=== PATIENT | female | born 1980 ===

== ENCOUNTER 2016-10-26 08:12 | Inpatient (IN) ==
--- NOTE | 2016-10-26 08:50 | Ultrasound Report ---
History: Maternal IDDM Date: 10/26/2016 Study: ultrasound biophysical profile Comparison exam: October 15, 2016 Real-time ultrasound images are captured and archived. There is a single intrauterine fetus in vertex presentation with a heart rate of 163 bpm. The placenta is posterior and fundal without previa. The DALE is lower normal at 5.1 cm. breathing movement, gross body movement, tone, and qualitative amniotic fluid volume are normal. Impression: Low risk for chronic asphyxia. The biophysical profile score is a normal 8 out of 8. The amniotic fluid index is borderline low at 5.1 cm, as compared to 9.3 cm on the comparison exam PROCEDURE INTERPRETED AT [facility] DEPARTMENT OF RADIOLOGY Final Report Signed by: Dr. Sofie Cast
[2016-10-26] MEDS ORDERED: BUTORPHANOL 2 MG/ML VIAL IV PRN (10:57)
[2016-10-26] MEDS ORDERED: MEPERIDINE 50 MG/1 ML VIAL IV PRN (10:57)
[2016-10-26] MEDS ORDERED: ONDANSETRON 4 MG/2 ML VIAL IV PRN ×2 (10:57→19:37)
[2016-10-26] MEDS ORDERED: LACTATED RINGERS 1,000 ML IV SCH (11:00)
[2016-10-26] MEDS ORDERED: OXYTOCIN/LR 20 UNIT/1,000 ML BAG IV SCH (11:00)
[2016-10-26 11:26] LABS: Basophils % 0.2 % (0.0-0.8); Eosinophils # 0.1 10*3/uL (0.0-0.87); Eosinophils % 0.8 % (0.00-10.9); Hematocrit 37.5 VOL% (35.7-47.0); Hemoglobin 13.4 GM/DL (12.0-16.0); Immature Granulocytes % 1.9 %; Immature Granulocytes Absolute 0.18 #; Lymphocytes # 2.5 10*3/uL (1.4-4.0); Lymphocytes % 27.2 % (21.3-54.2); Mean Corpuscular HGB Conc 35.7 GM/DL (32-36); Mean Corpuscular Hemoglobin 32 PG (27-34); Mean Corpuscular Volume 88.9 FL (87-102); Mean Platelet Volume 9.5 FL (9.6-12.0); Monocytes # 0.5 10*3/uL (0.11-0.8); Monocytes % 5.7 % (1.7-12.7); NRBC # 0.07 10*3/uL; Neutrophils # 5.9 10*3/uL (1.4-7.4); Neutrophils % 64.2 % (38.7-73.9); Platelet Count 192 T/CUMM (130-400); Red Blood Count 4.22 MC/CUMM (3.8-5.5); White Blood Count 9.3 T/CUMM (4-12)
[2016-10-26] MEDS ORDERED: CITRIC ACID/SODIUM CITRATE 30 ML UDCUP PO ONE (11:42)
[2016-10-26] MEDS ORDERED: hydrOXYzine HCL 25 MG/1 ML VIAL IM PRN (11:42)
[2016-10-26] MEDS ORDERED: LACTATED RINGERS 1,000 ML IV PRN (11:42)
[2016-10-26] MEDS ORDERED: diphenhydrAMINE 50 MG/1 ML VIAL IV PRN ×2 (11:42)
[2016-10-26] MEDS ORDERED: FAMOTIDINE 20 MG/2 ML VIAL IV ONE (11:42)
[2016-10-26] MEDS ORDERED: ePHEDrine 50 MG/ML AMP IV PRN (11:42)
[2016-10-26] MEDS ORDERED: fentaNYL 2 MCG/ROPIV 0.2% EPID 150 ML EPIDURAL SCH (11:42)
[2016-10-26] MEDS ORDERED: PROMETHAZINE 25 MG/1 ML VIAL IM ONE (11:42)
[2016-10-26] MEDS ORDERED: LACTATED RINGERS 1,000 ML IV ONE (11:42)
[2016-10-26 11:54] LABS: Albumin 2.7 G/DL (3.4-5.0); Bilirubin,Total 0.4 MG/DL (0.2-1.0); Calcium 8.9 MG/DL (8.5-10.1); Osmolality,Calculated 276.7 MOS/KG (273-304); Potassium 3.9 MMOL/L (3.5-5.1); Total Protein 5.8 G/DL (6.4-8.3)
[2016-10-26] MEDS ORDERED: AMPICILLIN INJ 2,000 MG in SODIUM CHLORIDE 0.9% 100 ML IV ONE (11:56)
--- NOTE | 2016-10-26 13:13 | OB/GYN History & Physical ---
History of Present Illness Chief complaint: Active labor History of present illness: Ms. Bruce is a 36 year old female 4 with 3 living children EDC is 11/29/2016 who presented to the office today with minimal complaints. She was examined and found to be 5-6 cm dilated. Patient is a known insulin-dependent diabetic where she has been receiving care through the [facility] as well as a [place] [facility]. Her most recent insulin dosage has been adjusted 35 units of N in the morning and also 1 5 and fasting blood sugars and 2 hour postprandial were much better control. Patient has been receiving nonstress tests for the last month weekly and biophysical profiles. The biophysical profile most recently she demonstrated a grade 2 placenta however with adequate amniotic fluid. Patient is doing well is very active. She was examined in the office and found to be 5 6 cm dilation admitted for augmentation of her labor risks benefits thoroughly discussed the discussion of this patient's possibly winding up in the nursery was also discussed with this patient units of R in the evening as well as the a.m. This most recent adjustment was working well patient Home Medications Medication Instructions Recorded Confirmed Type Vits #90/Iron Fum/FA 1 mg PO DAILY 08/03/16 10/26/16 History [ Formula Tablet] Insulin NPH [HumuLIN N] 40 units SUBCUT AC BREAKFAST 10/08/16 10/26/16 History Insulin NPH [HumuLIN N] 40 units SUBCUT AC SUPPER 10/08/16 10/26/16 History Insulin Regular [HumuLIN R] 15 units SUBCUT AC SUPPER 10/08/16 10/26/16 History Insulin Regular [HumuLIN R] 20 units SUBCUT AC BREAKFAST 10/08/16 10/26/16 History Allergies Allergy/AdvReac Type Severity Reaction Status Date / Time No Known Allergies Allergy Verified 10/26/16 08:21 Medical,Surgical,& Family Hx - Social History Smoking Status: Never smoker Exam [employer] - Constitutional General appearance: no acute distress - Head Head exam: Present: normal inspection - Eye Eye exam: Present: EOMI - ENT ENT exam: Present: normal exam - Neck Neck exam: Present: normal inspection - Respiratory Respiratory exam: Present: clear to auscultation bilaterally - Breast Breasts: as per HPI Menstruation: as per HPI - Cardiovascular Cardiovascular exam: Present: regular rate and rhythm - GI/Abdominal GI/Abdominal exam: Present: normal bowel sounds - Back Exam Back exam: Present: normal inspection - Neurological Exam Neurological exam: Present: alert, oriented X3 - Psychiatric Psychiatric exam: Present: normal affect - Skin Skin exam: Present: normal color Assessment and Plan (1) Prematurity of fetus Status: Acute Current Visit: Yes (2) Active labor Status: Acute Assessment and plan: Anticipate vaginal patient's 5-6 cm dilated. Will recommend a epidural anesthetic when appropriate. Current Visit: Yes Qualifiers: Fetus number: single or unspecified fetus Qualified Code(s): O60.10X0 - labor with delivery, unspecified trimester, not applicable or unspecified (3) Insulin dependent diabetes mellitus Status: Acute Assessment and plan: Accu-Cheks every 2 hours while in labor. We will also continue evaluation after the delivery. Current Visit: Yes Results - Labs CBC & BMP: 10/26/16 11:19 10/26/16 11:19 Quality Measures - VTE Contraindication to Pharmacological VTE Prophylaxis: Continuous Epidural Infusion
[2016-10-26 15:42] LABS: Apearance,Urine CLEAR (Clear); Bilirubin,Urine Negative (Negative); Blood, Urine Negative (Negative); Glucose,Urine (UA) Negative (Negative); Ketones,Urine Negative (Negative); Nitrite,Urine Negative (Negative); Protein,Urine Negative; RBC,Urine <1 /HPF (0-4); Squamous Epithelial Cell,Urine Occasional /HPF (0-10); Urine Color Straw (Yellow); Urine Urobilinogen < 2.0 EU/DL (0.2-1.0); WBC,Urine <1 /HPF (0-6)
[2016-10-26] MEDS ORDERED: AMPICILLIN INJ 1,000 MG in SODIUM CHLORIDE 0.9% 100 ML IV SCH (16:00)
[2016-10-26] MEDS ORDERED: METHYLERGONOVINE 0.2 MG/1 ML AMP ONE (17:08)
[2016-10-26] MEDS ORDERED: OXYTOCIN/LR 30 UNIT/1,000 ML BAG IV ONE (19:17)
[2016-10-26] MEDS ORDERED: oxyCODONE/ACETAMINOPHEN 5-325 MG TABLET PO PRN ×2 (19:37)
[2016-10-26] MEDS ORDERED: BISACODYL 10 MG SUPP RECTAL PRN (19:37)
[2016-10-26] MEDS ORDERED: MEASLES/MUMPS/RUBELLA VACCINE 0.5 ML VIAL SUBCUT ONE (19:37)
[2016-10-26] MEDS ORDERED: ACETAMINOPHEN 325 MG TABLET PO PRN (19:37)
[2016-10-26] MEDS ORDERED: BENZOCAINE 20%/MENTHOL 0.5% SPRAY 56 GM CAN TOP PRN (19:37)
[2016-10-26] MEDS ORDERED: HYDROCORTISONE 2.5% RECTAL CREAM 30 GM TUBE TOP PRN (19:37)
[2016-10-26] MEDS ORDERED: RHO(D) IMMUNE GLOBULIN 300 MCG SYRINGE IM ONE (19:37)
[2016-10-26] MEDS ORDERED: DIPH/TET/ACEL PERT BOOSTER VACCINE 0.5 ML VIAL IM ONE (19:37)
[2016-10-26] MEDS ORDERED: DEXTROSE 50% 25 GM/50 ML VIAL IV PRN ×2 (19:37→22:06)
[2016-10-26] MEDS ORDERED: LANOLIN 50% CREAM 0.3 OZ TUBE TOP PRN (19:37)
[2016-10-26] MEDS ORDERED: WITCH HAZEL PADS 100/JAR TOP PRN (19:37)
[2016-10-26] MEDS ORDERED: OXYTOCIN/LR 20 UNIT/1,000 ML BAG IV ONE (19:37)
[2016-10-26] MEDS ORDERED: GLUCAGON 1 MG VIAL IM PRN ×2 (19:37→22:06)
--- NOTE | 2016-10-26 19:50 | Event Note ---
Delivery note Stage I of labor IV Pitocin Epidural anesthetic Artificial rupture membranes Ampicillin 2 g every 6 External monitoring heart tones category 1 Stage II Vaginal delivery 1919 8 PM Female infant, 5 lbs. 3 oz., Apgars was 8 at 1 minute 9 at 5 minutes Cord blood and cord gas Stage III Placenta was delivered without complication at 1930 Placenta was sent to lab for further evaluation Blood loss was about 300 cc Patient received Methergine 0.2 mg IM No lacerations were noted
[2016-10-26 20:02] LABS: Cord Arterial Blood HCO3 20.4 MMOL/L
[2016-10-26 20:06] LABS: Cord Venous Blood PCO2 48.1 MMHG; Cord Venous Blood PO2 26.6
[2016-10-27] MEDS: INSULIN REGULAR 100 UNIT/ML SUBCUT SCH ×8 (02:22→22:03)
[2016-10-27] MEDS: IBUPROFEN 800 MG TABLET PO PRN ×2 (04:35→19:44)
[2016-10-27 06:38] LABS: Basophils % 0.2 % (0.0-0.8); Eosinophils # 0.1 10*3/uL (0.0-0.87); Eosinophils % 0.6 % (0.00-10.9); Hematocrit 33.9 VOL% (35.7-47.0); Hemoglobin 11.7 GM/DL (12.0-16.0); Immature Granulocytes % 1.3 %; Immature Granulocytes Absolute 0.16 #; Lymphocytes # 2.5 10*3/uL (1.4-4.0); Lymphocytes % 20.5 % (21.3-54.2); Mean Corpuscular HGB Conc 34.5 GM/DL (32-36); Mean Corpuscular Hemoglobin 31 PG (27-34); Mean Corpuscular Volume 89.9 FL (87-102); Mean Platelet Volume 9.8 FL (9.6-12.0); Monocytes # 0.8 10*3/uL (0.11-0.8); Monocytes % 6.2 % (1.7-12.7); NRBC # 0.05 10*3/uL; Neutrophils # 8.6 10*3/uL (1.4-7.4); Neutrophils % 71.2 % (38.7-73.9); Platelet Count 179 T/CUMM (130-400); Red Blood Count 3.77 MC/CUMM (3.8-5.5); Red Cell Distribution Width 14.2 % (9.3-17.3); White Blood Count 12.1 T/CUMM (4-12)
[2016-10-27] MEDS: INSULIN NPH 100 UNIT/ML SUBCUT SCH ×2 (07:56→18:00)
[2016-10-27] MEDS: DOCUSATE SODIUM 100 MG CAPSULE PO SCH ×4 (08:20→22:03)
--- NOTE | 2016-10-27 13:21 | Anesthesia Post-Op ---
Anesthesia Post OP - Post Ansesthetic Evaluation Patient seen in post op: Yes Resp: within normal limits CV: within normal limits Mental: within normal limits Temp: within normal limits [id number]-Cy-Hperitcna: within normal limits Nausea and Vomiting: within normal limits Pain: within normal limits
[2016-10-27] MEDS ORDERED: INSULIN NPH 100 UNIT/ML SUBCUT SCH (16:30)
[2016-10-27] MEDS ORDERED: INSULIN REGULAR 100 UNIT/ML SUBCUT SCH (16:30)
--- NOTE | 2016-10-27 20:53 | Progress Note ---
Assessment and Plan (1) Prematurity of fetus Status: Acute Current Visit: Yes (2) Active labor Status: Acute Assessment and plan: Anticipate vaginal patient's 5-6 cm dilated. Will recommend a epidural anesthetic when appropriate. Current Visit: Yes Qualifiers: Fetus number: single or unspecified fetus Qualified Code(s): O60.10X0 - labor with delivery, unspecified trimester, not applicable or unspecified (3) Insulin dependent diabetes mellitus Status: Acute Assessment and plan: Accu-Cheks every 2 hours while in labor. We will also continue evaluation after the delivery. Current Visit: Yes Family Medicine PN Sub Interval history: day #1 Status post vaginal prematurely, approximately 5+ cm at the time of active labor. Abdomen soft and nontender, uterus is nice and firm Extremities well with no limits and gross intact Insulin-dependent diabetes Has decreased her insulin therapy and only primarily using a sliding scale. We will continue to observe very closely possible discharge in the a.m. instruction will be given at this time Exam (Progress Note) - Constitutional Vitals: Period Temp Pulse Resp BP Sys/Murphy Pulse Ox Last 24 Hr 97.3 F-98.1 F 68-89 18-20 117-144/63-88 97-98 Results - Labs CBC & BMP: 10/27/16 06:21 10/26/16 11:19 Quality Measures - VTE Contraindication to Pharmacological VTE Prophylaxis: Continuous Epidural Infusion Specialty Discharge - Follow Up or Referrals
[2016-10-28] MEDS: INSULIN REGULAR 100 UNIT/ML SUBCUT SCH ×2 (06:10→08:44)
[2016-10-28 07:23] VITALS: BP 134/87
[2016-10-28] MEDS: INSULIN NPH 100 UNIT/ML SUBCUT SCH (08:44)
[2016-10-28] MEDS: DOCUSATE SODIUM 100 MG CAPSULE PO SCH (08:44)
--- NOTE | 2016-10-28 09:22 | Discharge Summary ---
Hospital Course - Hospital Course Hospital Course: Ms. Muhammad is a 36-year-old who presented to the labor department for active labor. She subsequently delivered a viable infant with no complications. She is followed a normal course and she has done well. Her bleeding is minimal with no odor. Her vital signs and lab values are stable. Her perineum is intact with no edema. Her fundus is firm and midline. She is voiding without difficulty. She is bonding well with her infant. She will be discharged home with prescriptions for pain and a follow-up appointment in our office. Specialty Discharge - Follow Up or Referrals Follow up with: Rosa Oconnell MD [Physician] - (Follow-up in 6 week) Discharge Plan - Discharge Data Disposition: Disch To Home/Self Care Condition at Discharge: Stable Discharge Diet: advance to your usual diet, diabetic diet Activity: resume usual activities as tolerated Hygiene: may shower Weight Bearing at Discharge: weight bear as tolerated Contact your physician if you experience:: fever over 101 - Discharge Medications New Insulin NPH [HumuLIN N] 10 unit SUBCUT AC SUPPER unit Insulin Regular [HumuLIN R] 0 unit SUBCUT Q6H unit Acetamin/Codeine 300-30 Tab [Tylenol/Codeine #3] 2 tablet PO Q4H PRN #30 tablet PRN Reason: Pain Mild To Moderate (1-7) Ibuprofen Tab [Motrin Tab] 800 mg PO Q6H PRN #30 tablet PRN Reason: Pain Moderate (4-7) Continue Insulin Regular [HumuLIN R] 20 units SUBCUT AC BREAKFAST Insulin NPH [HumuLIN N] 40 units SUBCUT AC BREAKFAST Insulin Regular [HumuLIN R] 15 units SUBCUT AC SUPPER Insulin NPH [HumuLIN N] 40 units SUBCUT AC SUPPER Vits #90/Iron Fum/FA [ Formula Tablet] 1 mg PO DAILY - Follow Up or Referral Follow Up: Rosa Oconnell MD [Physician] - (Follow-up in 6 week) - Forms/Instructions Instructions: Perineal Care (DC), Vaginal Delivery (DC), Movement (DC), Bleeding (DC) Exam - Constitutional Vitals: Period Temp Pulse Resp BP Sys/Murphy Pulse Ox Last 24 Hr 98 F-98.9 F 73-88 18-20 126-150/71-88 97-98 General appearance: no acute distress - Head Head exam: Present: normal inspection - Respiratory Respiratory exam: Present: clear to auscultation bilaterally - Cardiovascular Cardiovascular exam: Present: regular rate and rhythm - GI/Abdominal GI/Abdominal exam: Present: normal bowel sounds, soft - Extremities Exam Extremities exam: Present: normal inspection - Back Exam Back exam: Present: normal inspection - Neurological Exam Neurological exam: Present: alert, oriented X3 - Psychiatric Psychiatric exam: Present: normal affect, normal mood - Skin Skin exam: Present: normal color, warm Discharge Results Labs on day of discharge: Labs from last 24 hours 10/28/16 10/28/16 10/28/16 07:15 02:19 02:02 POC Glucose 77 121 H 69 L 10/27/16 10/27/16 10/27/16 19:50 13:53 10:43 POC Glucose 97 216 H 101 DS: Provider Date of admission: 10/26/16 11:15 Primary care physician: Rob Chapman MD Attending physician on admission: Rosa Oconnell MD Consults: 10/26/16 19:37 Consult to Location Director [CONS] Routine Consult Location Director: Breast Feeding Discharging clinician: hPilly Anders CNM Expected date of discharge: 10/28/16
--- NOTE | 2016-10-28 12:21 | Pathology Report from [facility] ---
[facility] ACCESSION # : [id number] PATIENT NAME : aSry Bruce ORDERING DR : CHITO BUI MD CLINICAL HX: , EDC 11/29/16 @ 35.1 wks gest, IDDM diabetic POST-OP DX: Same SPECIMEN INFO: Placenta GROSS DESCRIPTION: Received fresh labeled SARY BRUCE & PLACENTA is a 344 gm placenta measuring 14.9 x 14.0 x 2.5 cm. The membranes are pink guerrero and translucent. The umbilical cord measures 15.0 cm and is focally edematous. The cord contains three vessels and is eccentrically inserted. The surface is blue peguero and circumarginate. The maternal surface is hemorrhagic and intact with scattered areas of fibrin noted measuring up 1.0 cm. Sections submitted A- membranes and cord, B- and maternal surfaces. DIAGNOSIS FOR SARY BRUCE: PLACENTA, MEMBRANES, UMBILICAL CORD: Focal placental infarction with dystrophic calcification, mild intervillous blood, attached fibrin clot. Tri-vessel umbilical cord, eccentrically inserted. Membranes with focal acute and chronic inflammation and attached blood. COLLECTED DATE: 10/27/2016 [facility] REPORT DATE: 10/28/2016 ELECTRONICALLY SIGNED BY: Jaja Schmidt M.D. 10/28/2016 - 10:35:59 [email or web address]
== END 2016-10-28 12:45 | disposition home or self-care (01) | DRG 774 ==
LOC: N.LDOUT 08:12 → N.LD 08:13 → UNDODEPREF 10:55 → N.LD 10:56 → N.OB 21:30
PROVIDERS: ADMIT Obstetrics & Gynecology; ATTEND Obstetrics & Gynecology